=== PATIENT | male | born 1940 | race Caucasian/White ===

== ENCOUNTER → 2021-01-25 12:35 | Outpatient (BNVA) | payer OTHER, SELFPAY | PROVIDERS: Family Provider Emergency Medicine Emergency Medical Services; PCP Emergency Medicine Emergency Medical Services; Referring Provider Emergency Medicine Emergency Medical Services; Visit Provider Specialist | DX: G56.12 Other lesions of median nerve, left upper limb (principal) | CPT/HCPCS: 95908 ==

== ENCOUNTER → 2021-03-02 10:28 | Outpatient (BNVA) | payer OTHER, SELFPAY | PROVIDERS: Family Provider Emergency Medicine Emergency Medical Services; PCP Emergency Medicine Emergency Medical Services; Visit Provider Specialist | DX: G56.11 Other lesions of median nerve, right upper limb (principal); G56.02 Carpal tunnel syndrome, left upper limb | CPT/HCPCS: 95860 ==

== ENCOUNTER → 2021-05-10 09:42 | Outpatient (BNVA) | payer OTHER, SELFPAY | PROVIDERS: Family Provider Emergency Medicine Emergency Medical Services; PCP Emergency Medicine Emergency Medical Services; Referring Provider Emergency Medicine Emergency Medical Services; Visit Provider Specialist | DX: G56.02 Carpal tunnel syndrome, left upper limb (principal); M19.032 Primary osteoarthritis, left wrist | CPT/HCPCS: 73110 ==

== ENCOUNTER → 2021-05-17 09:21 | Outpatient (BNVA) | payer OTHER, SELFPAY | PROVIDERS: Family Provider Emergency Medicine Emergency Medical Services; PCP Emergency Medicine Emergency Medical Services; Visit Provider Specialist | DX: G56.02 Carpal tunnel syndrome, left upper limb (principal); Z20.822 Contact with and (suspected) exposure to COVID-19 | CPT/HCPCS: 87635 ==

== ENCOUNTER 2021-05-21 05:36 | Day surgery (SDC) | payer OTHER, SELFPAY ==
[2021-05-20 10:29] VITALS: BMI 26.6
[2021-05-21 05:57] VITALS: BP 160/102; PULSE 64; RESP 16; TEMP 36.7; O2SAT 95
[2021-05-21] MEDS: sodium chloride 0.9% 1,000 ML 30 ML IV (06:24)
[2021-05-21] MEDS: CELEcoxib 200 mg Capsule 400 MG PO (06:24)
[2021-05-21] MEDS: acetaminophen 1,000 MG/100 ML PIGGYBACK 400 MG IV (06:24)
--- NOTE | 2021-05-21 06:42 | ANES.PREANE2 ---
Pre-Anesthetic Assessment Height/Weight: Height 1.8 m Weight 86.636 kg Temp Pulse Resp BP Pulse Ox 98.1 F 64 16 160/102 95 05/21/21 05:57 05/21/21 05:57 05/21/21 05:57 05/21/21 05:57 05/21/21 05:57 Preop Diagnosis: Left carpal tunnel syndrome Operation Date: 05/21/21 07:00 Proposed Procedures p Carpal Tunnel Release(Left) - Lynette Montalvo MD Familial anesthetic complications: None Was Beta Kalyani taken within 24 hours: N/A Was Clonidine taken within 24 hours: N/A Last intake: Intake Last Liquid Date 05/20/21 Last Liquid Time 21:00 Last Solid Date 05/20/21 Last Solid Time 21:00 Social No alcohol and No tobacco Exam alert, oriented x 3, clear to auscultation bilaterally and regular rate & rhythm Airway Mallampati: Class III Dentition: full CV/HEM Hypertension Metabolic Hyperlipidemia Anesthetic Plan ASA status: 2 Anesthesia: MAC and Regional (specify below) Other: [place] block Risk of > 500 ml blood loss (7ml/kg in children): No Medications/Allergies Home Medications Medication Instructions Recorded Confirmed Last Taken Type lisinopril 10 mg tablet 10 mg PO DAILY 05/10/21 05/20/21 Unknown History Allergies Allergy/AdvReac Type Severity Reaction Status Date / Time No Known Allergies Allergy Verified 05/21/21 05:56 Current Medications Generic Name Dose Route Start Last Admin Trade Name Freq PRN Reason Stop Dose Admin Sodium Chloride 1,000 mls @ 30 mls/hr 05/21/21 06:00 05/21/21 06:24 Sodium Chloride 0.9% IV 05/22/21 05:59 30 mls/hr .Q24H OMERO Administration PFSH Anesthesia Family History Mother , AT AGE 78 Diabetes Father , AT AGE 33 FROM A COAL MINE ACCIDENT No problems noted. Social History Smoking and tobacco status: never smoked Second hand smoke exposure: No Smoking risk assessment/counseling performed?: No Alcohol intake: current Alcohol intake frequency: other Desire information about alcohol rehabilitation?: No Counseling given: No Desire information about substance/drug rehabilitation?: No Counseling given: No Adopted: No Caregiver/support person: No Lives independently: No Household members: spouse Marital status: Current occupational status: retired Data Anesthesia Cardiac Studies: No Data to Display
--- NOTE | 2021-05-21 06:56 | W.PM.OPSUD ---
Surgery/Procedure H&P Update DATE OF PROCEDURE: May 21, 2021 DATE H&P PERFORMED: 05/10/21 H&P UPDATE INFORMATION: I have reviewed H&P completed within last 30 days, I have examined patient prior to procedure, No changes to prior documentation and H&[place] is in [facility] [place] DIAGNOSIS: Left carpal tunnel syndrome PLANNED PROCEDURE: Operation Date: 05/21/21 07:00 Proposed Procedures p Carpal Tunnel Release(Left) - Lynette Montalvo MD Related Problem List Diagnoses (1) Left carpal tunnel syndrome:
--- NOTE | 2021-05-21 08:01 | P.OP_ITS ---
Operative Report Date of procedure: May 21, 2021 Pre-op diagnosis: Left carpal tunnel syndrome Post-op diagnosis: Left carpal tunnel syndrome Procedure done: Left Carpal Tunnel Release Pathology: none sent Surgeon: Lynette Montalvo Anesthesia: Other (Garza-[place] Ii block with MAC) Estimated blood loss (mL): 5 Tourniquet time (min): 46 (At 250 mmHg) IV fluids (mL): 700 Urine output (mL): 0 (No Baptiste) Complications: None Condition: stable Disposition: PACU (Then return to outpatient surgery for discharge to home) Brief History: This is an established 81 year old male patient due to symptoms consistent with left wrist carpal tunnel syndrome. Patient states it is not his wrist that is problematic, but his fingers are going numb/tingling.? Patient has had recent NCS/EMG results done with Dr. Pike.? Patient is status post previous right carpal tunnel release. Procedure: The patient was brought to the operating theater. The patient had a Herlinda block with MAC. The tourniquet was elevated to 250 mmHg for a total tourniquet time of 46 minutes. The patient was also given Ancef 2 g preoperatively. The arm was then prepped and draped with DuraPrep in usual fashion with the arm draped free. A surgical pause was performed. At the time, the surgical pause, we confirmed the site and side of surgery. We also confirmed the patient's identity, appropriate and timely administration of preoperative antibiotics and preoperative surgical markings. An incision was then made along the thenar crease. The incision crossed the wrist joint in a curvilinear fashion. Dissection continued through skin and soft tissues using a scalpel. The palmaris longus was identified along with the transverse carpal ligament. Each of these was released carefully to avoid injury to the median nerve. We were able to dissect gently into the carpal canal which was noted to be quite tight with significant compression across the median nerve. The nerve was visualized and was an hourglass shape with significant purplish discoloration. Following release of the transverse carpal ligament, the canal was subsequently palpated to assure there was no bony encroachment upon the canal. There was a quite thickened fibrous tissue within the canal, and this was opened longitudinally as well. The canal was then palpated distally and proximally to assure that my small finger was passed easily without impingement. Finding this to be so, attention was directed to closure. The wound was irrigated with bupivacaine plain. It was then closed with 3-0 nylon in an interrupted mattress fashion. Sterile dressing was then placed consisting of Xeroform gauze, fluffed fluffs, sterile soft roll, and an Reji wrap. The tourniquet was released after 46 minutes. There were no complications. There were no specimens. The procedure was well tolerated. Plan is the patient will be discharged home. Related Problem List Diagnoses (1) Left carpal tunnel syndrome:
[2021-05-21 08:05] VITALS: BP 158/70; PULSE 61; RESP 17; TEMP 36.4; O2SAT 91
[2021-05-21 08:10] VITALS: BP 190/100; PULSE 61; RESP 17; O2SAT 92
--- NOTE | 2021-05-21 08:11 | SUR.PHASEI ---
patient into pacu asleep but wakes to voice. dressing dry and intact to left hand. fingers to left hand warm and pink. patient on room air with sats at 91%.
[2021-05-21 08:15] VITALS: BP 135/94; PULSE 61; RESP 18; O2SAT 92
[2021-05-21 08:20] VITALS: BP 135/94; BP 160/85; PULSE 62; RESP 15; RESP 18; TEMP 36.1; TEMP 36.6; O2SAT 92; O2SAT 95
--- NOTE | 2021-05-21 08:26 | SUR.PHASEI ---
0819: patient taken back to ops room 1. report given to madeleine. in room. patient awake and alert. dressing dry and in place.
[2021-05-21 08:35] VITALS: BP 133/88; PULSE 64; RESP 16; TEMP 36.7; O2SAT 94
== END 2021-05-21 08:55 | disposition home or self-care (01) ==
PROVIDERS: PCP Emergency Medicine Emergency Medical Services; Visit Provider Specialist
PROC: (CPT 64721; principal; 2021-05-21 07:00)
DX: G56.02 Carpal tunnel syndrome, left upper limb (principal); I10 Essential (primary) hypertension; E78.5 Hyperlipidemia, unspecified
CPT/HCPCS: 64721; J0690; J2704; J3010; J3490; J7030

== ENCOUNTER → 2022-01-17 09:30 | Outpatient (BNVA) | payer OTHER, SELFPAY | PROVIDERS: PCP Emergency Medicine Emergency Medical Services; Referring Provider Emergency Medicine Emergency Medical Services; Visit Provider Specialist | DX: M17.12 Unilateral primary osteoarthritis, left knee (principal) | CPT/HCPCS: 73560; 73565; 99213 ==